=== PATIENT | male | born 1965 | race Caucasian/White ===

== ENCOUNTER 2025-02-16 14:27 | Emergency (ER) | payer OTHER ==
[2025-02-16] MEDS ORDERED: TETRACAINE HCL 0.5% 4ML OPTH ONE (14:39)
--- NOTE | 2025-02-16 15:04 | ER ---
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 PT REPORTS RINSED EYES AT THE EYE WASH STATION BUT FEELS SOMETHING IN THE RT EYE. Coronavirus screen: At this time, the client does not indicate any symptoms associated with coronavirus-19. Ebola Screen: No symptoms or risks identified at this time. Initial Sepsis Screen: Does the patient meet any 2 criteria? No. Patient's initial sepsis screen is negative. Does the patient have a suspected source of infection? No. Patient's initial sepsis screen is negative. Risk Assessment: Do you want to hurt yourself or someone else? Patient reports no desire to harm self or others. Onset of symptoms was February 16, 2025. 14:34 Method Of Arrival: Ambulatory dd2 14:34 Acuity: JH 4 dd2 Triage Assessment: 14:38 General: Appears uncomfortable, Behavior is calm, cooperative, appropriate for age. dd2 Pain: Complains of pain in right eye. EENT: Eyes are tearing on right eye Sclera/Cornea are reddened in right eye. Historical: - Allergies: 14:38 No Known Allergies; dd2 - PMHx: 14:38 Hypertensive disorder; Hypercholesterolemia; dd2 - PSHx: 14:38 None; dd2 - Immunization history:: Adult Immunizations up to date. - Infectious Disease History:: Denies. - Social history:: Smoking status: Patient denies any tobacco usage or history of. Screenin:24 [facility] ED Fall Risk Assessment (Adult) History of falling in the last 3 months, db including since admission No falls in past 3 months (0 pts) Confusion or Disorientation No (0 pts) Intoxicated or Sedated No (0 pts) Impaired Gait No (0 pts) Mobility Assist Device Used No (0 pt) Altered Elimination No (0 pt) Score/Fall Risk Level 0 - 2 = Low Risk Oriented to surroundings, Maintained a safe environment. Abuse screen: Denies threats or abuse. Denies injuries from another. Nutritional screening: No deficits noted. Tuberculosis screening: No symptoms or risk factors identified. Assessment: 15:26 Reassessment: Patient appears in no apparent distress at this time. Patient and/or db family updated on plan of care and expected duration. Pain level reassessed. Patient is alert, oriented x 3, equal unlabored respirations, skin warm/dry/pink. General: Appears in no apparent distress. comfortable, Behavior is calm, cooperative. Neuro: Level of Consciousness is awake, alert, obeys commands, Oriented to person, place, time, situation. Vital Signs: 14:34 BP 119 / 97; Pulse 76; Resp 16; Temp 98.2; Pulse Ox 99% ; Pain 2/10; dd2 14:34 Pain Scale: Adult dd2 ED Course: 14:31 Patient arrived in ED. al6 14:31 [facility]C [facility]5 14:31 Ephraim Jones MD is Attending Physician. dr5 14:38 Triage completed. dd2 14:38 Arm band placed on right wrist. dd2 15:24 Rosa Serrano, LUIS FERNANDO is Primary Nurse. db 15:24 Patient has correct armband on for positive identification. Bed in low position. Call db light in reach. Side rails up X 1. Provided Education on: PRESCRIPTIONS AND FOLLOWUP. 15:24 Assist provider with eye exam of Performed by Golden BRYSON. Patient did not have db IV access during this emergency room visit. Administered Medications: 14:49 Drug: Tetracaine Ophthalmic Drops 0.5 % 1 drops Ophthalmic once Route: Ophthalmic; db Site: right eye; 15:26 Follow up: Response: No adverse reaction db 14:49 Drug: Fluorescein Ophthalmic Strip 1 strip Ophthalmic once Route: Ophthalmic; Site: db right eye; 15:26 Follow up: Response: No adverse reaction db Medication: 15:24 VIS not applicable for this client. db Outcome: 15:03 Discharge ordered by . dr5 15:24 Discharged to home ambulatory, db 15:24 Condition: stable 15:24 Discharge instructions given to patient, Instructed on discharge instructions, follow up and referral plans. Prescriptions given X 1, 15:26 Patient left the ED. db Signatures: Rosa Serrano RN RN DONNA Soriano RN RN dd2 Golden Puentes, MECHANICAL INTEGRITY ENGINEER-C MECHANICAL INTEGRITY ENGINEER-Cdr5 Ana Walker6 Corrections: (The following items were deleted from the chart) 15:24 15:24 No provider procedures requiring assistance completed. db db
--- NOTE | 2025-02-16 15:04 | EDPHYS ---
Physician Documentation [facility] Name: Hernan Dennison Age: 60 yrs Sex: Male : 1965 Arrival Date: 02/16/2025 Time: 14:27 Bed 9 Private MD: ED Physician Ephraim Jones HPI: 02/16 15:05 This 60 yrs old Male presents to ER via Ambulatory with complaints of Eye dr5 Problem. 15:05 Onset: The symptoms/episode began/occurred acutely. Patient is a 60-year-old male with dr5 history of hypertension hyperlipidemia coming in with right eye discomfort and possible foreign body. Patient reports he was working and had dust blew in his eye approximately an hour and a half prior to arrival. Patient reports he rinsed his eyes once possible and has been rubbing it. Patient denies fever, discharge from eye, change in vision.. Historical: - Allergies: 14:38 No Known Allergies; dd2 - PMHx: 14:38 Hypertensive disorder; Hypercholesterolemia; dd2 - PSHx: 14:38 None; dd2 - Immunization history:: Adult Immunizations up to date. - Infectious Disease History:: Denies. - Social history:: Smoking status: Patient denies any tobacco usage or history of. ROS: 15:05 Constitutional: as per hpi dr5 Exam: 15:05 Constitutional: This is a well developed, well nourished patient who is awake, alert, dr5 and in no acute distress. Head/Face: Normocephalic, atraumatic. ENT: Nares patent. No nasal discharge, no septal abnormalities noted. Tympanic membranes are normal and external auditory canals are clear. Oropharynx with no redness, swelling, or masses, exudates, or evidence of obstruction, uvula midline. Mucous membranes moist. Neck: Trachea midline, no thyromegaly or masses palpated, and no cervical lymphadenopathy. Supple, full range of motion without nuchal rigidity, or vertebral point tenderness. No Meningismus. Chest/axilla: Normal chest wall appearance and motion. Nontender with no deformity. No lesions are appreciated. Cardiovascular: Regular rate and rhythm with a normal S1 and S2. Normal PMI, no JVD. No pulse deficits. Respiratory: Lungs have equal breath sounds bilaterally, clear to auscultation. No rales, rhonchi or wheezes noted. No increased work of breathing, no retractions or nasal flaring. Back: No spinal tenderness. No costovertebral tenderness. Full range of motion. Skin: Warm, dry with normal turgor. Normal color with no rashes, no lesions, and no evidence of cellulitis. MS/ Extremity: Pulses equal, no cyanosis. Neurovascular intact. Full, normal range of motion. Neuro: Awake and alert, GCS 15, oriented to person, place, time, and situation. Cranial nerves II-XII grossly intact. Motor strength 5/5 in all extremities. Sensory grossly intact. Cerebellar exam normal. Normal gait. 15:05 Eyes: Periorbital structures: appear normal, no acute changes, Pupils: no acute changes, equal, round, and reactive to light and accomodation, Extraocular movements: intact throughout, Conjunctiva: normal, no acute changes, Eye exam performed with small corneal abrasion noted at 3 o'clock position. Negative Eric sign. Extraocular movements intact.. Vital Signs: 14:34 BP 119 / 97; Pulse 76; Resp 16; Temp 98.2; Pulse Ox 99% ; Pain 2/10; dd2 14:34 Pain Scale: Adult dd2 Procedures: 15:05 Eye Exam: Tetracaine and fluorescein strip used. dr5 MDM: 14:34 Medical Screening Exam initiated dr5 15:05 Differential diagnosis: Corneal abrasion of right eye. Corneal ulcer of right eye. dr5 Foreign body in right eye. Data reviewed: vital signs, nurses notes. Consideration of Admission/Observation Escalation of care including admission/observation considered. Discussion considered patient found to have positive Eric sign. I considered the following discharge prescriptions or medication management in the emergency department I discussed and recommended Over The Counter medications, Medications were administered in the Emergency Department. See MAR. Care significantly affected by the following chronic conditions: Hypertension, Hyperlipidemia. Care significantly affected by the following Social Determinants of Health: Poor access to healthcare and/or lack of insurance, Poor access to transportation, Problems related to employment. Counseling: I had a detailed discussion with the patient and/or guardian regarding the historical points, exam findings, and any diagnostic results supporting the discharge/admit diagnosis, the presence of at least one elevated blood pressure reading (>120/80) during this emergency department visit, the need for outpatient follow up, for definitive care, an opthalmologist. Medication response: Tetracaine. Response to treatment: the patient's symptoms have resolved after treatment. Special discussion: I discussed with the patient/guardian in detail that at this point there is no indication for admission to the hospital. It is understood, however, that if the symptoms persist or worsen the patient needs to return immediately for re-evaluation. Based on the history and exam findings, there is no indication for further emergent testing or inpatient evaluation. I discussed with the patient/guardian the need to see the opthamologist for further evaluation of the symptoms. ED course: Eye exam completed with small corneal abrasion noted. Will give patient Ocuflox. Patient reports his pain is better after tetracaine. Will also cover for conjunctivitis. All question answered. Strict ER precautions given. Administered Medications: 14:49 Drug: Tetracaine Ophthalmic Drops 0.5 % 1 drops Ophthalmic once Route: Ophthalmic; db Site: right eye; 15:26 Follow up: Response: No adverse reaction db 14:49 Drug: Fluorescein Ophthalmic Strip 1 strip Ophthalmic once Route: Ophthalmic; Site: db right eye; 15:26 Follow up: Response: No adverse reaction db Disposition: 17:12 Co-signature as Attending Physician, Ephraim Jones MD I reviewed the patient's care rn provided by the Advanced Practice Provider and agree with the diagnosis and treatment plan. Disposition Summary: 02/16/25 15:03 Discharge Ordered Notes: Location: Home dr5 Condition: Stable dr5 Diagnosis - Injury of conjunctiva and corneal abrasion without foreign body, right eye dr5 Followup: dr5 - With: Emergency Department - When: As needed - Reason: Worsening of condition Followup: dr5 - With: Private Physician - When: 1 - 2 days - Reason: Recheck today's complaints, Continuance of care, Re-evaluation by your physician Discharge Instructions: - Discharge Summary Sheet dr5 - Corneal Abrasion dr5 Forms: - Work release form dr5 - Medication Reconciliation Form dr5 - Antibiotic Education dr5 - Patient Portal Instructions dr5 - Leadership Thank You Letter dr5 Prescriptions: - Ocuflox 0.3 % Ophthalmic drops - instill 2 drops OPHTHALMIC route every 6 hours for 7 days; 20 milliliter; dr5 Refills: 0, Product Selection Permitted Signatures: Ephraim Jones MD MD rn Benton, Danielle, RN RN db DAVIS, DIANA, RN RN dd2 Golden Puentes, ONCOLOGY CONSULTANT-C ONCOLOGY CONSULTANT-Cdr5 Corrections: (The following items were deleted from the chart) 15:05 15:03 Injury of conjunctiva and corneal abrasion without foreign body, left eye dr5 dr5
[2025-02-16 15:41] VITALS: BP 119/97; TEMP 98.2; O2SAT 99
== END 2025-02-16 15:26 | disposition home or self-care (01) ==
LOC: ER 14:27
DX: S05.01XA Injury of conjunctiva and corneal abrasion without foreign body, right eye, initial encounter (principal)
CPT/HCPCS: 99283